=== PATIENT | male | born 1965 | race Caucasian/White ===

== ENCOUNTER 2019-08-26 08:08 | Emergency (ER) | payer BC ==
[2019-08-26 08:36] VITALS: BP 157/118
--- NOTE | 2019-08-26 08:52 | UC ---
General HPI - HPI Summary HPI Summary: 5 days of flu like illness, sore throat, cough, bodyaches, Tmax this AM was 99.9. Good PO. No N/V/D. Sleeping less due to cough. Using Nyquil at night. Not a smoker. Remote use of inhalers in the past. Borderline HTN, goes up when he is sick Meds; Reviewed - History of Current Complaint Chief Complaint: UCGeneralIllness Stated Complaint: FLU SYMPTOMS Time Seen by Provider: 08/26/19 08:30 Pain Intensity: 0 - Allergy/Home Medications Allergies/Adverse Reactions: Allergies Allergy/AdvReac Type Severity Reaction Status Date / Time No Known Allergies Allergy Verified 08/26/19 08:32 Home Medications: Home Medications Dm/Acetaminophen/Doxylamine [Nighttime Cold and Flu Liquid] 1 dose PO ONCE 08/25 [History Confirmed 08/26/19] PMH/Surg Hx/FS Hx/Imm Hx Previously Healthy: Yes - Surgical History Surgical History: Yes Surgery Procedure, Year, and Place: Left foot. tonsillectomy - Social History Alcohol Use: Rare Substance Use Type: None Smoking Status (MU): Never Smoked Tobacco Review of Systems All Other Systems Reviewed And Are Negative: Yes Constitutional: Positive: Chills ENT: Positive: Sore Throat, Nasal Discharge, Sinus Congestion Respiratory: Positive: Cough Physical Exam Triage Information Reviewed: Yes Appearance: Well-Appearing Vital Signs: Initial Vital Signs Temp 98.2 F 08/26/19 08:31 Pulse 75 08/26/19 08:31 Resp 15 08/26/19 08:31 BP 157/118 08/26/19 08:31 Pulse Ox 99 08/26/19 08:31 Vital Signs Reviewed: Yes ENT: Positive: Pharyngeal erythema, Nasal congestion, TMs normal Neck: Positive: Supple, Nontender Respiratory: Positive: Lungs clear, Normal breath sounds Cardiovascular: Positive: RRR, No Murmur Course/Dx - Course Course Of Treatment: This is a 54 yr old with flu like s/s nontoxic appearing Flu: negative Plan Your flu test was negative This is a viral illness Continue supportive care Rest, fluids and ibuprofen as needed for pain/fever If symptoms persist or worsen recommend follow up with your PCP or return to urgent care Your blood pressure was elevated today, recommend it is rechecked and followed up with your PCP - Diagnoses Provider Diagnosis: Viral syndrome Discharge ED - Sign-Out/Discharge Documenting (check all that apply): Patient Departure All imaging exams completed and their final reports reviewed: No Studies - Discharge Plan Condition: Fair Disposition: HOME Patient Education Materials: Viral Syndrome (ED) Forms: *Work Release Referrals: No Primary Care Phys,NOPCP [Primary Care Provider] - [facility] [place] [facility] [Outside] Additional Instructions: Your flu test was negative This is a viral illness Continue supportive care Rest, fluids and ibuprofen as needed for pain/fever If symptoms persist or worsen recommend follow up with your PCP or return to urgent care Your blood pressure was elevated today, recommend it is rechecked and followed up with your PCP - Billing Disposition and Condition Condition: FAIR Disposition: Home
[2019-08-26 08:54] LABS: Influenza A Molecular Negative (Negative); Influenza B Molecular Negative (Negative)
== END 2019-08-26 09:13 | disposition home or self-care (01) ==
LOC: UCCORT 08:08
DX: B34.9 Viral infection, unspecified (principal); R03.0 Elevated blood-pressure reading, without diagnosis of hypertension; J02.9 Acute pharyngitis, unspecified; R05 Cough; R52 Pain, unspecified; R09.81 Nasal congestion; R09.89 Other specified symptoms and signs involving the circulatory and respiratory systems
CPT/HCPCS: 99201; G0463